=== PATIENT | female | born 1960 | race American Indian/Alaskan Native ===

== ENCOUNTER 2016-09-10 08:52 | Outpatient (CLI) | payer MEDICARE ==
--- NOTE | 2016-09-10 10:02 | Mammography Report ---
Screening mammogram: Routine views compared to prior exams in 2015 and 2016. This is a progression of focal microcalcifications in the inferior and medial right breast. On the current examination they appear significantly more pleomorphic than previously. The remainder of the breast pattern bilaterally is generally fatty replaced and remains unchanged. Impressions: Indeterminate right breast calcifications. Recommendation: Magnification views of the right breast calcifications. BI-RADS CATEGORY: 0 = Needs additional imaging evaluation ACR BI-RADS MAMMOGRAPHIC CODES: 0 = Needs additional imaging evaluation; 1 = Negative; 2 = Benign; 3 = Probably benign; 4 = Suspicious; 5 = Malignant; 6 = Known biopsy-proven malignancy COMMENT: 1. Dense breast tissue, i.e., adenosis, fibrocystic changes, etc., may obscure an underlying neoplasm. 2. Approximately 10% of cancers are not detected with mammography. 3. A negative mammography report should not delay biopsy if a clinically suspicious mass is present.
--- NOTE | 2016-09-10 11:40 | XRay Report ---
ROUTINE CHEST, TWO VIEWS: HISTORY: The physical exam. The trachea, heart, mediastinal contour, lung calderon and bony thorax are unremarkable. IMPRESSION: Unremarkable chest x-ray.
== END 2016-09-10 08:53 | disposition home or self-care (01) ==
LOC: SPVWC 08:52
PROVIDERS: ATTEND Internal Medicine
DX: Z12.31 Encounter for screening mammogram for malignant neoplasm of breast (principal); Z00.00 Encounter for general adult medical examination without abnormal findings
CPT/HCPCS: 71020; G0202; 77067